=== PATIENT | female | born 1950 | race Caucasian/White ===

== ENCOUNTER 2019-06-29 20:35 | Observation (INO) | payer OTHER ==
[~2019-06-29] VITALS: Ht 165.1 cm; Wt 87.1 kg
[~2019-06-29 20:35] MED LIST: FLEXERIL PO; NAPROSYN500 MG PO; NOHOMEMEDICATIONS; NORCO 5-325 TA1 EACH PO; PRILOSEC40 MG PO
[2019-06-29 20:44] VITALS: BP 174/77
[2019-06-29 21:02] LABS: URINE BILIRUBIN NEGATIVE (Negative); URINE BLOOD 1+ (Negative); URINE CLARITY CLEAR; URINE COLOR YELLOW; URINE GLUCOSE-RANDOM NEGATIVE (Negative); URINE LEUKOCYTES-REFLEX NEGATIVE (Negative); URINE NITRITE-REFLEX NEGATIVE (Negative); URINE PROTEIN TRACE (Negative); URINE SPECIFIC GRAVITY 1.025 (1.005-1.030); URINE UROBILINOGEN 0.2 E.U./dl (0.2-1.0)
[2019-06-29 21:03] LABS: URINE KETONES 3+ (Negative)
[2019-06-29 21:11] LABS: CASTS None Seen /LPF (None Seen); CRYSTALS None Seen /LPF (None Seen); MUCUS 4-6 Moderate strn/LPF (None Seen); SQUAMOUS 0-3 Few /LPF (0-3); URINE RBC 3-10 Few /HPF (0-2); URINE WBC-REFLEX 0-5 Rare /HPF (0-5)
[2019-06-29 21:19] LABS: HEMATOCRIT 43.6 % (37.0-47.0); HEMOGLOBIN 14.3 gm/dL (12.0-15.0); MCH 27.4 pg (26.0-34.0); MCHC 32.8 g/dL (28.0-37.0); MCV 83.6 fL (80.0-100.0); MPV 7.1 fl. (7.2-11.1); NUCLEATED RBCS 0 /100WBC; PLATELET COUNT* 254 thou/uL (150-400); RBC 5.21 mil/uL (4.20-5.00); WBC 15.4 thou/uL (4.0-11.0)
[2019-06-29 21:36] LABS: CALCIUM 8.4 mg/dL (8.5-10.1); CREATININE 0.8 mg/dL (0.6-1.3)
[2019-06-29 21:41] LABS: ALBUMIN 3.8 g/dL (3.4-5.0); TOTAL BILIRUBIN 0.6 mg/dL (<0.1-1.0); TOTAL PROTEIN 7.5 g/dL (6.4-8.2)
[2019-06-29 22:09] LABS: ABSOLUTE LYMPHOCYTES 0.9 thou/uL (0.8-5.3); ABSOLUTE MONOCYTES 0.5 thou/uL (0.0-1.2); ANISOCYTOSIS Occasional; PLATELET ESTIMATE ADEQUATE; TOXIC GRANULATION 1+
[2019-06-30] VITALS (10 sets, daily range): BP systolic 118–132; BP diastolic 44–68
[2019-06-30] MEDS ORDERED: IBUPROFEN 400400 M2 PO (10:05)
[2019-06-30] MEDS ORDERED: OXYCODONE HCL 55 MG PO (10:06)
[2019-06-30] MEDS ORDERED: COLACE 100 MG100 MG PO (10:07)
[2019-06-30] MEDS ORDERED: MIRALAX17 GM PO (10:07)
[2019-06-30] MEDS ORDERED: ACETAMINOPHEN325 M1 PO (10:07)
--- NOTE | 2019-06-30 11:55 | EKG ---
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
--- NOTE | 2019-07-01 17:07 | PATH ---
[address] [address] PATHOLOGY RPT PROCEDURE Name: MARYBETH CORRALES Room: [address] Vivi#: [id number] Admission: 06/29/19 Date of : 46 Discharge: 06/30/19 Report #: [id number] Path Case #: [id number] [facility] Accession Number: [id number] . 01 Material submitted: . appendix - APPENDIX . 01 Clinical history: . Acute appendicitis . 02 Diagnosis: Appendix: - Acute appendicitis, periappendicitis and serositis. (ELSA/db; 07/01/2019) LBQ 07/01/2019 1514 Local . 02 Electronically signed: . Reji Robles MD, Pathologist NPI- [id number] . 01 Gross description: . The specimen is received in formalin, labeled "Marybeth Corrales, appendix". Received is a vermiform appendix measuring 6.6 cm in length by up to 1.0 cm in diameter with a moderate amount of attached mesoappendix. The serosal surface is pink-bolanos in appearance with a slight amount of overlying exudate. The surgical margin is closed with a suture. The suture is removed and the new margin is inked black. Sectioning reveals a patent lumen filled with a slight amount of blood coagulum admixed with possible exudate. The specimen is submitted representatively in cassettes A1 and A2, with the proximal margin and bisected tip submitted in cassette A1. (CAA; 06/30/2019) QAC/QAC 07/01/2019 1513 Local . 02 Pathologist provided ICD-10: K35.80, K65.8 . 02 CPT . 033075 Specimen Comment: A courtesy copy of this report has been sent to [phone], [phone] Specimen Comment: [phone] Specimen Comment: Report sent to ,DR SCALES / DR ORTEGA Performed at: [address] [id number] MD Francisco Cortez MD Phone: [phone] Performed at: 02 [place] [address] PATHOLOGY RPT PROCEDURE Name: MARYBETH CORRALES Room: [address] Juani Trinidad#: [id number] Admission: 06/29/19 Date of : 46 Discharge: 06/30/19 Report #: [id number] Path Case #: [id number] [address], [place] [id number] MD Reji Robles MD Phone: [phone]
== END 2019-06-30 18:00 | disposition home or self-care (01) ==
LOC: M.ERS 20:35 → M.2W 23:04 → M.ORTHSURG 23:04 → M.TBA-ER 23:04 → M.2W 06-30 00:04 → M.ORTHSURG 06-30 08:45
PROVIDERS: Emergency Medicine Emergency Medical Services; ADMIT Surgery
DX: K35.80 Unspecified acute appendicitis (principal); R11.10 Vomiting, unspecified; Z90.710 Acquired absence of both cervix and uterus; Z98.890 Other specified postprocedural states; Z90.49 Acquired absence of other specified parts of digestive tract